=== PATIENT | female | born 1950 | race American Indian/Alaskan Native ===

== ENCOUNTER 2016-07-27 11:27 | Emergency (ER) | payer MEDICARE ==
[2016-07-27 12:10] LABS: Basophils % (Auto) 0.5 % (0.0-1.8); Eosinophils % (Auto) 5.8 % (0.0-4.3); Hematocrit 38.7 % (30.3-42.9); Hemoglobin 12.7 gm/dl (10.1-14.3); Mean Corpuscular HGB Conc 33 % (30-34); Mean Corpuscular Hemoglobin 29 pg (28-32); Mean Corpuscular Volume 87 fl (79-97); Platelet Count 172 K/mm3 (140-440); Red Blood Count 4.44 M/mm3 (3.65-5.03); White Blood Count 4.5 K/mm3 (4.5-11.0)
[2016-07-27 12:20] LABS: Partial Thromboplastin Time 28.1 Sec. (24.2-36.6)
[2016-07-27 12:28] LABS: Anion Gap 16 mmol/L; BUN/Creatinine Ratio 23.33; Blood Urea Nitrogen 14 mg/dL (7-17); Calcium 9.1 mg/dL (8.4-10.2); Carbon Dioxide 26 mmol/L (22-30); Glucose 103 mg/dL (65-100); Sodium 142 mmol/L (137-145)
--- NOTE | 2016-07-27 13:15 | XRay Report ---
PORTABLE CHEST INDICATION: Chest pain. COMPARISON: 05/05/2010 FINDINGS: Portable, frontal chest radiograph demonstrates mild exaggerated cardiomediastinal silhouette. Clear lungs. EKG leads. Mild bony degenerative changes. CONCLUSION: No acute chest process, stable. Thank you for the opportunity to participate in this patient's care.
--- NOTE | 2016-07-27 13:16 | XRay Report ---
LEFT FOOT, 2 VIEWS History: Pain. Findings: Borderline borderline osteopenia. There is no evidence for fracture, erosive joint pathology or bone lesion. There are mild osteoarthritic changes in the midfoot. Small plantar spur. The soft tissues are within normal limits. Impression: No acute process. Mild degenerative changes. Borderline osteopenia. Small plantar spur.
--- NOTE | 2016-07-27 13:18 | XRay Report ---
LEFT HAND RADIOGRAPHS INDICATION: Pain. COMPARISON: None similar. FINDINGS: AP and lateral left hand radiographs demonstrate intact articulation with mild degenerative changes as at first through third digit interphalangeal joints as also at the first metacarpal base. Approximately 3 mm ossific density at the thumb interphalangeal joint also presumed degenerative. Grossly unremarkable soft tissues. CONCLUSION: No acute left hand radiographic abnormality with mild degenerative changes noted. Thank you for the opportunity to participate in this patient's care.
--- NOTE | 2016-07-27 13:36 | Emergency Department Report ---
ED General Adult HPI - General Chief complaint: Chest Pain Stated complaint: ELEVATED BP/CHEST PAIN Time Seen by Provider: 07/27/16 11:56 Source: patient, EMS Mode of arrival: Stretcher Limitations: No Limitations - History of Present Illness MD Complaint: she comes in for elevated BP and headache and left hand and left foot pain -: Gradual Location: left, upper extremity, lower extremity Radiation: non-radiation Severity scale (0 -10): 4 Quality: aching Consistency: intermittent Worsens with: none Associated Symptoms: headaches. denies: confusion, chest pain, cough, diaphoresis, fever/chills, loss of appetite, nausea/vomiting (she denies any chest pain at this time,), syncope, weakness - Related Data Previous Rx's Medication Instructions Recorded Last Taken Type Acetaminophen/Codeine [Tylenol #3] 1 tab PO TID PRN #15 tab 12/15/14 Unknown Rx Penicillin Vk [Veetids TAB] 500 mg PO QID #28 tablet 12/15/14 Unknown Rx Benazepril (Nf) 20 mg PO DAILY #60 tablet 07/27/16 Unknown Rx hydrALAZINE [Apresoline TAB] 25 mg PO BID #90 tablet 07/27/16 Unknown Rx Allergies Allergy/AdvReac Type Severity Reaction Status Date / Time No Known Allergies Allergy Verified 12/15/14 04:29 ED Review of Systems ROS: Stated complaint: ELEVATED BP/CHEST PAIN Other details as noted in HPI Comment: All other systems reviewed and negative ED Past Medical Hx - Past Medical History Previous Medical History?: Yes Hx Hypertension: Yes - Surgical History Past Surgical History?: No - Social History Smoking Status: Never Smoker Substance Use Type: None - Medications Home Medications: Home Medications Medication Instructions Recorded Confirmed Last Taken Type Acetaminophen/Codeine [Tylenol #3] 1 tab PO TID PRN #15 tab 12/15/14 Unknown Rx Penicillin Vk [Veetids TAB] 500 mg PO QID #28 tablet 12/15/14 Unknown Rx Benazepril (Nf) 20 mg PO DAILY #60 tablet 07/27/16 Unknown Rx hydrALAZINE [Apresoline TAB] 25 mg PO BID #90 tablet 07/27/16 Unknown Rx ED Physical Exam - General Limitations: No Limitations General appearance: alert, in no apparent distress - Head Head exam: Present: atraumatic, normocephalic - Eye Eye exam: Present: normal appearance - ENT ENT exam: Present: normal exam, normal orophraynx, mucous membranes moist - Neck Neck exam: Present: normal inspection - Respiratory Respiratory exam: Present: normal lung sounds bilaterally, chest wall tenderness (bilateral on upper right and left chest). Absent: respiratory distress, wheezes, rales, rhonchi, accessory muscle use, decreased breath sounds , prolonged expiratory - Cardiovascular Cardiovascular Exam: Present: regular rate, normal rhythm. Absent: systolic murmur, diastolic murmur, rubs, gallop - GI/Abdominal GI/Abdominal exam: Present: soft, normal bowel sounds - Extremities Exam Extremities exam: Present: normal inspection - Back Exam Back exam: Present: normal inspection - Neurological Exam Neurological exam: Present: alert, oriented X3 - Psychiatric Psychiatric exam: Present: normal affect, normal mood - Skin Skin exam: Present: warm, dry, intact, normal color. Absent: rash ED Course Vital Signs 07/27/16 07/27/16 07/27/16 11:35 11:37 11:40 Temperature 98.8 F Pulse Rate 71 Respiratory 15 Rate Blood Pressure 184/99 O2 Sat by Pulse 99 99 Oximetry 07/27/16 07/27/16 07/27/16 11:45 11:50 11:56 Temperature Pulse Rate 74 77 70 Respiratory 23 16 24 Rate Blood Pressure 172/98 172/98 172/98 O2 Sat by Pulse 95 95 97 Oximetry 07/27/16 07/27/16 07/27/16 12:00 12:06 12:10 Temperature Pulse Rate 69 71 77 Respiratory 22 18 12 Rate Blood Pressure 166/95 166/95 166/95 O2 Sat by Pulse 95 97 100 Oximetry 07/27/16 07/27/16 07/27/16 12:15 12:16 12:20 Temperature Pulse Rate 69 69 Respiratory 25 H 18 23 Rate Blood Pressure 176/96 176/96 O2 Sat by Pulse 95 97 97 Oximetry 07/27/16 07/27/16 07/27/16 12:26 12:30 12:36 Temperature Pulse Rate 69 69 65 Respiratory 24 22 20 Rate Blood Pressure 176/96 172/95 172/95 O2 Sat by Pulse 97 95 97 Oximetry 07/27/16 07/27/16 07/27/16 12:40 12:46 12:50 Temperature Pulse Rate 66 78 71 Respiratory 20 26 H 22 Rate Blood Pressure 172/95 201/115 201/115 O2 Sat by Pulse 97 99 98 Oximetry 07/27/16 07/27/16 07/27/16 12:56 13:00 13:06 Temperature Pulse Rate 68 65 66 Respiratory 25 H 15 22 Rate Blood Pressure 201/115 183/90 183/90 O2 Sat by Pulse 100 98 100 Oximetry 07/27/16 07/27/16 07/27/16 13:10 13:15 13:20 Temperature Pulse Rate 66 67 72 Respiratory 21 21 17 Rate Blood Pressure 183/90 189/101 189/101 O2 Sat by Pulse 99 98 99 Oximetry ED Medical Decision Making - Lab Data Result diagrams: 07/27/16 11:56 07/27/16 11:56 - EKG Data -: EKG Interpreted by Me EKG shows normal: sinus rhythm - EKG Data When compared to previous EKG there are: no significant change Interpretation: no acute changes - Medical Decision Making patient been doing well, there is no chest pain and ekg only with LVH changes, labs negative , and xray of left foot / hand consistent with OA, do not feel the need for admisison at this time , she was recently seen by cardiology and stress done and was normal. will refill her meds and dc Critical care attestation.: If time is entered above; I have spent that time in minutes in the direct care of this critically ill patient, excluding procedure time. ED Disposition Clinical Impression: Hypertension, Osteoarthritis Disposition: DISCHARGED TO HOME OR SELFCARE Is pt being admited?: No Does the pt Need Aspirin: No Condition: Good Instructions: Hypertension (ED) Prescriptions: Benazepril (Nf) 20 mg PO DAILY #60 tablet hydrALAZINE [Apresoline TAB] 25 mg PO BID #90 tablet Referrals: PRIMARY CARE, [Primary Care Provider] - 3-5 Days Time of Disposition: 13:38
[2016-07-27 13:51] VITALS: BP 171/105
== END 2016-07-27 13:57 | disposition home or self-care (01) ==
LOC: ED 11:27
DX: I10 Essential (primary) hypertension (principal); M19.90 Unspecified osteoarthritis, unspecified site
CPT/HCPCS: 36415; 71010; 80048; 84484; 85025; 85610; 85730; 93005; 93010; 99285